=== PATIENT | female | born 1950 | race Caucasian/White ===

== ENCOUNTER 2017-01-16 10:00 | Outpatient (CLI) | payer MEDICARE, OTHER | END 2017-01-16 10:01 | disposition home or self-care (01) | DX: E87.5 Hyperkalemia (principal) ==

== ENCOUNTER 2020-11-27 13:50 | Outpatient (CLI) | payer MEDICARE, OTHER ==
[2020-11-27 18:09] LABS: BASOPHILS % (AUTO) 0.6 %; EOSINOPHILS # (AUTO) 0.1 10^3/uL (0.0-0.7); EOSINOPHILS % (AUTO) 1.3 %; HGB - HEMOGLOBIN 13.4 g/dL (12.0-16.0); LYMPHOCYTES # (AUTO) 1.9 10^3/uL (1.5-3.5); LYMPHOCYTES % (AUTO) 26.1 %; MEAN CORPUSCULAR HEMOGLOBIN 29.3 pg (27.0-31.0); MEAN CORPUSCULAR HGB CONC 31.4 g/dL (32.0-36.0); MEAN CORPUSCULAR VOLUME 93.2 fL (81.0-99.0); MEAN PLATELET VOLUME 9.8 fL (7.9-10.8); MONOCYTES # (AUTO) 0.6 10^3/uL (0.0-1.0); MONOCYTES % (AUTO) 7.7 %; NEUTROPHILS # (AUTO) 4.6 10^3/uL (1.5-6.6); NEUTROPHILS % (AUTO) 63.9 %; PLT - PLATELET COUNT 319 10^3/uL (130-450); RED BLOOD COUNT 4.58 10^6/uL (4.20-5.40); RED CELL DISTRIBUTION WIDTH 14.4 % (12.0-15.0); WHITE BLOOD COUNT 7.1 x10^3/uL (4.8-10.8)
[2020-11-27 19:09] LABS: ALBUMIN 4.3 g/dL (3.2-5.5); ALBUMIN/GLOBULIN RATIO 1.5 (1.0-2.2); ALKALINE PHOSPHATASE 42 IU/L (42-121); ALT ALANINE AMINOTRANSFERASE 21 IU/L (10-60); AST ASPARTATE AMINOTRANSFERASE 24 IU/L (10-42); BILIRUBIN,TOTAL 0.7 mg/dL (0.2-1.0); BUN - BLOOD UREA NITROGEN 23 mg/dL (6-20); CALCIUM 9.4 mg/dL (8.5-10.3); CARBON DIOXIDE - CO2 24 mmol/L (21-32); CHLORIDE 108 mmol/L (101-111); CHOL/HDL RATIO 2.5 (<4.4); CHOLESTEROL 232 mg/dL; CREATININE 0.9 mg/dL (0.4-1.0); GLUCOSE 100 mg/dL (70-100); HDL CHOLESTEROL 91 mg/dL; LDL CHOLESTEROL,CALCULATED 132 mg/dL; LDL/HDL RATIO 1.5 (<4.4); TOTAL PROTEIN 7.1 g/dL (6.7-8.2); VLDL CHOLESTEROL 9 mg/dL
[2020-11-27 20:33] LABS: HEMOGLOBIN A1c% 5.5 % (4.27-6.07)
[2020-11-28 12:31] LABS: HEPATITIS C ANTIBODY NON-REACTIVE (NON-REACTIVE)
== END 2020-11-27 23:59 | disposition home or self-care (01) ==
LOC: LAB.WCP 13:50
PROVIDERS: ATTEND Family Medicine
DX: Z01.84 Encounter for antibody response examination (principal); R73.01 Impaired fasting glucose; M81.0 Age-related osteoporosis without current pathological fracture; E78.5 Hyperlipidemia, unspecified
CPT/HCPCS: 36415; 80053; 80061; 83036; 83721; 85025; 86803

== ENCOUNTER 2021-01-16 10:54 | Outpatient (CLI) | payer MEDICARE, OTHER ==
--- NOTE | 2021-01-16 16:00 | DEXA Report ---
PROCEDURE: Dexa Spine and/or Hip INDICATIONS: OSTEOPOROSIS TECHNIQUE: Dual energy x-ray absorptiometry (DXA) was performed on a [employer] System. Regions measur ed are the AP Spine, femoral neck, and if needed forearm. COMPARISON: DEXA 12/10/2015, noting done on the Hologic system and not directly comparable to current e xam. FINDINGS: Lumbar Spine: Bone Mineral Density 1.077 g/cm/cm,T score -0.9, normal Left Hip: Bone Mineral Density 0.874 g/cm/cm,T score -1.1, minimal osteopenia Left Femoral Neck: Bone Mineral Density 0.842 g/cm/cm, T score -1.4, minimal to mild osteopenia (T score greater or equal to -1.0: NORMAL) (T score from -1.1 to -2.4: OSTEOPENIA) (T score less than or equal to -2.5 to: OSTEOPOROSIS) Impression: Minimal to mild osteopenia within the left hip and femoral neck relatively stable taking into account technique differences compared to prior exam. Patients with diagnosis of osteoporosis or osteopenia should have regular bone mineral density assess ment. For those eligible for Medicare, routine testing is allowed once every 2 years. Testing frequ ency can be increased for patients who have rapidly progressing disease or for those who are receivin g medical therapy to restore bone mass. Reviewed by: Tia Rojas MD on 01/16/2021 3:58 PM PDT Approved by: Tia Rojas MD on 01/16/2021 3:58 PM PDT Station ID: [id number]
== END 2021-01-16 10:55 | disposition home or self-care (01) ==
LOC: DI 10:54
PROVIDERS: ATTEND Family Medicine
DX: M85.89 Other specified disorders of bone density and structure, multiple sites (principal)

== ENCOUNTER 2021-01-16 11:37 | Outpatient (CLI) | payer MEDICARE, OTHER ==
--- NOTE | 2021-01-17 15:21 | Mammography Report ---
BILATERAL DIGITAL SCREENING MAMMOGRAM 3D/2D: 01/16/2021 CLINICAL: Routine screening. Comparison is made to exams dated: 01/28/2018 mammogram, 01/05/2017 mammogram, and 12/25/2015 mammogram - [facility]. The tissue of both breasts is heterogeneously dense. This may lower the sensi tivity of mammography. There is possible irregular architectural distortion in the left breast middle depth superior region seen on the mediolateral oblique view only. This is more prominent. No other significant masses, calcifications, or other findings are seen in either breast. IMPRESSION: INCOMPLETE: NEEDS ADDITIONAL IMAGING EVALUATION The possible irregular architectural distortion in the left breast is indeterminate. Additional view s with possible ultrasound are recommended. This exam was interpreted at Station ID: [id number]. NOTE: For mammograms, a report in lay terms will be sent to the patient. Approximately 15% of breast malignancies will not be visualized mammographically. In the management of a palpable breast mass, a negative mammogram must not discourage biopsy of a clinically suspicious lesion. Electronically Signed By: Dara godinez/lei:01/16/2021 16:00:59 ACR BI-RADS Category 0: Incomplete 3340F PARENCHYMAL PATTERN: (D) - The breast(s) demonstrate(s) heterogeneously dense fibroglandular parsarah soto. BI-RADS CATEGORY: (0) - 0 Mammo and US [id number] Immediate follow-up LATERALITY: (B)
== END 2021-01-16 11:38 | disposition home or self-care (01) ==
LOC: DI 11:37
PROVIDERS: ATTEND Family Medicine
DX: Z12.31 Encounter for screening mammogram for malignant neoplasm of breast (principal); N64.89 Other specified disorders of breast

== ENCOUNTER 2021-02-07 07:58 | Outpatient (CLI) | payer MEDICARE, OTHER ==
--- NOTE | 2021-02-08 09:36 | Ultrasound Report ---
LIMITED ULTRASOUND OF LEFT BREAST: 02/07/2021 CLINICAL: Patient returns today to evaluate a focal asymmetry in the left breast. Comparison is made to exams dated: 02/07/2021 mammogram, 01/16/2021 mammogram - [facility], 01/28/2018 mammogram, 01/05/2017 mammogram, and 12/25/2015 mammogram - [facility]. Real-time ultrasound of the left breast 11-1 o'clock region was performed. Birch scale images of the real-time examination were reviewed. No significant abnormalities were seen sonographically in the left breast. IMPRESSION: PROBABLY BENIGN There is no abnormality seen in the left breast to correspond with the previously described mammograp hy finding in the upper aspect which likely represents normal fibroglandular tissue. A follow-up left mammogram in 6 months is recommended to demonstrate continued stability/resolution. Findings and recommendations were conveyed to the patient during today's evaluation. This exam was interpreted at Station ID: [id number]. Electronically Signed By: Doug Mendoza M.D. aty/:02/07/2021 10:32:17 Ultrasound BI-RADS: 3 Probably benign BI-RADS CATEGORY: (3) - 3 Mammogram [id number] 6 month follow-up LATERALITY: (L)
--- NOTE | 2021-02-08 09:36 | Mammography Report ---
UNILATERAL LEFT DIGITAL DIAGNOSTIC MAMMOGRAM 3D/2D: 02/07/2021 CLINICAL: Patient returns today to evaluate an asymmetry in left breast. Comparison is made to exams dated: 01/16/2021 mammogram - [facility], 01/28/2018 [facility], 01/05/2017 mammogram, and 12/25/2015 mammogram - [facility]. The tissue of left breast is heterogeneously dense. This may lower the sensitivity of mammography. The previously described possible irregular architectural distortion in the left breast posterior dep th superior region seen on the mediolateral oblique view only is not definitively confirmed in today' s additional views. Overall it appears much less prominent and decreased in size and mostly looks li ke background breast parenchyma. No other significant masses or calcifications are seen in the breast. IMPRESSION: INCOMPLETE: NEEDS ADDITIONAL IMAGING EVALUATION The previously possible irregular architectural distortion in the left breast demonstrates essentiall y near complete dispersion and likely represents background breast parenchyma. However, it remains in determinate. An ultrasound is recommended for further evaluation and is scheduled to immediately fol low this examination. This exam was interpreted at Station ID: [id number]. NOTE: For mammograms, a report in lay terms will be sent to the patient. Approximately 15% of breast malignancies will not be visualized mammographically. In the management of a palpable breast mass, a negative mammogram must not discourage biopsy of a clinically suspicious lesion. Electronically Signed By: Doug Mendoza M.D. aty/:02/07/2021 10:30:21 ACR BI-RADS Category 0: Incomplete 3340F PARENCHYMAL PATTERN: (D) - The breast(s) demonstrate(s) heterogeneously dense fibroglandular alexandra soto. BI-RADS CATEGORY: (0) - 0 Ultrasound [id number] Immediate follow-up LATERALITY: (L)
== END 2021-02-07 07:59 | disposition home or self-care (01) ==
LOC: DI 07:58
PROVIDERS: ATTEND Family Medicine
DX: R92.8 Other abnormal and inconclusive findings on diagnostic imaging of breast (principal)

== ENCOUNTER 2021-10-09 09:44 | Outpatient (CLI) | payer MEDICARE, OTHER ==
--- NOTE | 2021-10-10 08:38 | Mammography Report ---
UNILATERAL LEFT DIGITAL DIAGNOSTIC MAMMOGRAM 3D/2D: 10/09/2021 CLINICAL: Patient returns for a 6 month follow up of the left breast. Comparison is made to exams dated: 02/07/2021 ultrasound, 02/07/2021 mammogram, 01/16/2021 mammogram - [facility], 01/28/2018 mammogram, 01/05/2017 mammogram, and 12/25/2015 mammogram - [facility]. The tissue of left breast is heterogeneously dense. This may lower the sensitivity of mammography. The previoulsy described possible irregular architectural distortion in the left breast posterior dep th superior region seen on the mediolateral oblique view only is again not confirmed in additional vi ews and is less prominent. It was not seen on the prior ultrasound. No other significant masses or calcifications are seen in the breast. IMPRESSION: PROBABLY BENIGN The possible irregular architectural distortion in the left breast most likely is fibroglandular tiss ue and is probably benign. A follow-up bilateral mammogram with possible left ultrasound in 6 months is recommended to demonstra te continued stability. Findings and recommendations were conveyed to the patient during today's evaluation. This exam was interpreted at Station ID: [id number]. NOTE: For mammograms, a report in lay terms will be sent to the patient. Approximately 15% of breast malignancies will not be visualized mammographically. In the management of a palpable breast mass, a negative mammogram must not discourage biopsy of a clinically suspicious lesion. Electronically Signed By: Doug Mendoza M.D. aty/:10/09/2021 10:30:27 ACR BI-RADS Category 3: Probably benign 3343F PARENCHYMAL PATTERN: (D) - The breast(s) demonstrate(s) heterogeneously dense fibroglandular parenchy ma. BI-RADS CATEGORY: (3) - 3 Mammo and US [id number] 6 month follow-up LATERALITY: (B)
== END 2021-10-09 09:45 | disposition home or self-care (01) ==
LOC: DI 09:44
PROVIDERS: ATTEND Family Medicine
DX: R92.8 Other abnormal and inconclusive findings on diagnostic imaging of breast (principal)

== ENCOUNTER 2022-12-01 10:44 | Outpatient (CLI) | payer MEDICARE, OTHER ==
--- NOTE | 2022-12-02 11:07 | Mammography Report ---
UNILATERAL LEFT DIGITAL DIAGNOSTIC MAMMOGRAM 3D/2D: 12/01/2022 CLINICAL: Patient returns for a 6 month follow up of the left breast. Comparison is made to exams dated: 05/23/2022 mammogram, 10/09/2021 mammogram, 02/07/2021 mammogram, 01/16 mammogram - [facility], and 01/28/2018 mammogram - [facility]. The left breast is heterogeneously dense, which may obscure small masses (category c / 51-75% glandul ar tissue). There is a possible stable benign irregular architectural distortion in the left breast posterior dep th superior region seen on the mediolateral oblique view only. No other significant masses or calcifications are seen in the breast. IMPRESSION: BENIGN There is no mammographic evidence of malignancy. Return to annual mammogram screening schedule is rec ommended. Future imaging is recommended as follows: 05/23/2023 mammogram. Based on the Tyrer Cuzick model (a risk assessment model) the patients lifetime risk is 7.5% and her 10 year risk is 6.8%. According to the ACR, ACS, and NCCN guidelines, an annual breast MRI exam vinayak g with mammogram is recommended if the patients lifetime risk is 20% or greater. This exam was interpreted at Station ID: [id number]. NOTE: For mammograms, a report in lay terms will be sent to the patient. Approximately 15% of breast malignancies will not be visualized mammographically. In the management of a palpable breast mass, a negative mammogram must not discourage biopsy of a clinically suspicious lesion. Electronically Signed By: Ashok delgado/lei:12/01/2022 12:12:19 ACR BI-RADS Category 2: Benign Finding(s) 3342F PARENCHYMAL PATTERN: (D) - The breast(s) demonstrate(s) heterogeneously dense fibroglandular parericy ma. BI-RADS CATEGORY: (2) - 2 Mammogram [id number] return to screening LATERALITY: (B)
== END 2022-12-01 10:45 | disposition home or self-care (01) ==
LOC: DI 10:44
PROVIDERS: ATTEND Physician Assistant
DX: R92.8 Other abnormal and inconclusive findings on diagnostic imaging of breast (principal)

== ENCOUNTER 2022-12-30 18:45 | Outpatient (CLI) | payer MEDICARE, OTHER ==
[2022-12-30 21:14] LABS: BILIRUBIN,URINE NEGATIVE (NEGATIVE); GLUCOSE, URINE (UA) NEGATIVE (NEGATIVE); KETONES,URINE (UA) NEGATIVE (NEGATIVE); LEUKOCYTE ESTERASE, URINE NEGATIVE (NEGATIVE); NITRITE,URINE NEGATIVE (NEGATIVE); OCCULT BLOOD,URINE LARGE (NEGATIVE); PH,URINE 5.5 PH (5.0-7.5); PROTEIN,URINE 30 mg/dL (NEGATIVE); UROBILINOGEN,URINE 0.2 (NORMAL) E.U./dL (NORMAL)
[2022-12-30 21:18] LABS: CLARITY,URINE HAZY (CLEAR)
[2022-12-30 21:24] LABS: BACTERIA,URINE Rare /HPF (None Seen); RBC,URINE TNTC /HPF (0-5); SQUAMOUS EPITHELIAL CELL,UR RARE Squamous (<= Few); WBC,URINE 0-3 /HPF (0-5)
== END 2022-12-30 23:59 | disposition home or self-care (01) ==
LOC: LAB.N 18:45
PROVIDERS: ATTEND Nurse Practitioner
DX: R31.9 Hematuria, unspecified (principal)
CPT/HCPCS: 81001; 87086

== ENCOUNTER 2023-01-03 04:40 | Emergency (ER) | payer MEDICARE, OTHER ==
--- NOTE | 2023-01-03 04:53 | ED Physician Documentation ---
PD HPI ABD PAIN - Stated complaint Stated Complaint: ZOILA PX - Chief complaint Chief Complaint: Abd Pain - History obtained from History obtained from: Patient - Additional information Additional information: HPI from patient. Patient c/o right flank pain radiating to right groin, episodic x 6 days with intermittent hematuria. Denies h/o similar symptoms. No inciting, exacerbating, nor ameliorating factors. Patient had been getting adequate relief with tylenol until tonight. Last dose tylenol was 3 tablets (325mg tablets) at approximately midnight. Review of Systems GI: reports: Abdominal Pain. denies: Nausea, Vomiting : reports: Hematuria. denies: Dysuria, Frequency PD PAST MEDICAL HISTORY - Past Medical History Past Medical History: No - Past Surgical History Past Surgical History: No - Present Medications Home Medications: Ambulatory Orders Medication Instructions Recorded Confirmed Ondansetron Odt [Zofran] 4 mg TL Q6H PRN #10 tablet 01/03/23 Oxycodone HCl/Acetaminophen 1 - 2 each PO Q6H PRN #14 tablet 01/03/23 [Percocet 5-325 mg Tablet] Tamsulosin [Flomax] 0.4 mg PO DAILY #14 cap 01/03/23 - Allergies Allergies/Adverse Reactions: Allergies Allergy/AdvReac Type Severity Reaction Status Date / Time No Known Drug Allergies Allergy Verified 01/03/23 04:49 - Living Situation Living Arrangement: reports: At home PD ED PE NORMAL - Vitals Vital signs reviewed: Yes - General General: Alert and oriented X 3, No acute distress (waxing and waning painful discomfort during H+P), Well developed/nourished - Cardiac Cardiac: RRR, No murmur - Respiratory Respiratory: No respiratory distress, Clear bilaterally - Abdomen Abdomen: Soft, Non tender - Back Back: No CVA TTP - Derm Derm: No rash Results - Vitals Vitals: Oxygen O2 Source Room air - Labs Labs: Laboratory Tests 01/03/23 01/03/23 05:04 05:04 WBC 12.1 H RBC 4.89 Hgb 14.3 Hct 44.2 MCV 90.4 MCH 29.2 MCHC 32.4 RDW 14.1 Plt Count 333 MPV 9.5 Neut # (Auto) 9.0 H Lymph # (Auto) 2.1 Gregory # (Auto) 0.7 Eos # (Auto) 0.2 Baso # (Auto) 0.1 Absolute Nucleated RBC 0.00 Nucleated RBC % 0.0 Sodium 138 Potassium 4.0 Chloride 105 Carbon Dioxide 24 Anion Gap 9.0 BUN 23 H Creatinine 1.1 H Estimated GFR (MDRD) 49 L Glucose 145 H Calcium 9.6 Total Bilirubin 0.2 AST 23 ALT 18 Alkaline Phosphatase 48 Total Protein 7.7 Albumin 4.5 Globulin 3.2 Albumin/Globulin Ratio 1.4 Lipase 45 - Rads (name of study) CT A/P Relevant Findings:: Prelim report reviewed, EMP independent interpretation of test (I reviewed these images and my interpretation is 6mm calculus in right ureter at level of pelvic brim with right hydroureteronephrosis), See rad report PD Medical Decision Making - ED course Complexity details: reviewed results, re-evaluated patient, considered differential, d/w patient ED course: Mild leukocytosis (12.1), with GFR 49 (previous results 61 although most recent result was 2020). CT demonstrates right ureteral calculus. She is given 15mg IV toradol and 5mg PO oxycodone with good pain relief on reevaluation. Results d/w patient. She is given 0.4mg tamsulosin prior to d/c. Return precautions discussed. Advised to seek follow up with urology; renal calculi also noted on CT (in addition to the ureteral stone). Prescriptions for zofran, oxycodone, and tamsulosin e-prescribed to patient's pharmacy of choice. I am prescribing a short course of short-acting opioid pain medication for this patient. I have reviewed the patients BULK PIGMENT REDUCER and no concerning findings were noted. I have discussed that the opioids are for short term therapy only, and will not be refilled from the ED. Departure - Departure Disposition: 01 Home, Self Care Clinical Impression: Renal colic Condition: Good Instructions: ED Stone Renal W Colic Prescriptions: Tamsulosin [Flomax] 0.4 mg PO DAILY #14 cap Oxycodone HCl/Acetaminophen [Percocet 5-325 mg Tablet] 1 - 2 each PO Q6H PRN #14 tablet PRN Reason: pain Ondansetron Odt [Zofran] 4 mg TL Q6H PRN #10 tablet PRN Reason: Nausea / Vomiting Comments: The CT scan shows a 6 mm kidney stone that is stuck in the ureter (the tube that connects the kidney to the bladder). This is what is causing your pain. Based on the size of the stone, you might need to have a procedure to remove the stone (it might not pass on its own). Contact your primary care provider on Thursday to inquire about the referral process for a urologist. Prescriptions for Percocet (narcotic/opiate pain medication), tamsulosin (medication that can increase the likelihood of passing the stone without a procedure), and ondansetron (anti-nausea medication) have been electronically submitted to [facility] pharmacy in [place]. Strain your urine through the strainer; if you passed the stone, you will see it caught in the mesh of the strainer. If you do pass the stone, you can stop taking the tamsulosin the following day (in other words, if you pass a stone, you should take one more dose of the tamsulosin when you are next due for it). I am prescribing a short course of narcotic pain medication for you. These are potentially dangerous and addictive medications that should be used carefully. These medications may constipate you. Take an xzhb-xpv-eglfauc stool softener (docusate) twice daily with plenty of water while taking these medications. If you go 24 hours without a bowel movement, take uegi-jdd-qzbrdoy miralax, per package instructions. Do not drink or drive while taking these medications. If you received narcotic or sedating medications while in the emergency department, do not drive for 24 hours. Store this medication in a safe, secure place and out of reach of children. It is a violation of federal law to give or sell this medication to another person or to use in a manner other than prescribed. The ED will not refill narcotic prescriptions, including prescriptions lost or stolen. To dispose of unwanted medications: 1. [facility] at [address] in [place] has a medication drop box. They accept prescription medications (in pill form) Thursday through Thursday 9:00 a.m. to 5:00 p.m. 2. The [facility] [employer] accepts prescription medications (in pill form only) for disposal year round. Call for more information. 3. Contact the [facility] for the next [facility] sponsored prescription d rug collection event. , [phone], or [phone]; Discharge Date/Time: 01/03/23 06:59
[2023-01-03 05:07] LABS: BASOPHILS # (AUTO) 0.1 10^3/uL (0.0-0.1); BASOPHILS % (AUTO) 0.6 %; EOSINOPHILS # (AUTO) 0.2 10^3/uL (0.0-0.7); EOSINOPHILS % (AUTO) 1.8 %; HCT - HEMATOCRIT 44.2 % (37.0-47.0); HGB - HEMOGLOBIN 14.3 g/dL (12.0-16.0); LYMPHOCYTES # (AUTO) 2.1 10^3/uL (1.5-3.5); LYMPHOCYTES % (AUTO) 17.1 %; MEAN CORPUSCULAR HEMOGLOBIN 29.2 pg (27.0-31.0); MEAN CORPUSCULAR HGB CONC 32.4 g/dL (32.0-36.0); MEAN CORPUSCULAR VOLUME 90.4 fL (81.0-99.0); MEAN PLATELET VOLUME 9.5 fL (7.9-10.8); MONOCYTES # (AUTO) 0.7 10^3/uL (0.0-1.0); MONOCYTES % (AUTO) 5.9 %; NEUTROPHILS % (AUTO) 74.4 %; PLT - PLATELET COUNT 333 10^3/uL (130-450); RED BLOOD COUNT 4.89 10^6/uL (4.20-5.40); RED CELL DISTRIBUTION WIDTH 14.1 % (12.0-15.0); WHITE BLOOD COUNT 12.1 x10^3/uL (4.8-10.8)
[2023-01-03] MEDS ORDERED: KETOROLAC 15 MG/ML VIAL IM STA (05:12)
[2023-01-03] MEDS ORDERED: oxyCODONE 5 MG TABLET PO STA (05:12)
[2023-01-03 05:27] LABS: ALBUMIN 4.5 g/dL (3.2-5.5); ALBUMIN/GLOBULIN RATIO 1.4 (1.0-2.2); BILIRUBIN,TOTAL 0.2 mg/dL (0.2-1.0); CALCIUM 9.6 mg/dL (8.5-10.3); CREATININE 1.1 mg/dL (0.4-1.0); TOTAL PROTEIN 7.7 g/dL (6.7-8.2)
[2023-01-03] MEDS ORDERED: oxyCODONE/ACET 5/325 Prepack 4 PO STA (06:41)
[2023-01-03] MEDS ORDERED: TAMSULOSIN 0.4 MG CAPSULE PO STA (06:42)
[2023-01-03 07:06] VITALS: BP 136/82
--- NOTE | 2023-01-03 11:16 | CT Report ---
PROCEDURE: ABDOMEN/PELVIS WO INDICATIONS: right flank pain TECHNIQUE: Noncontrast 5 mm thick sections acquired from the diaphragms to the symphysis. 5 mm coronal and sagi ttal reformats were then performed. For radiation dose reduction, the following was used: automated exposure control, adjustment of mA and/or kV according to patient size. COMPARISON: None. FINDINGS: Image quality: Excellent. Lung bases and heart: Unremarkable. A small hiatal hernia is incidentally noted. Liver: Unremarkable. Gallbladder and biliary tree: Within normal limits Spleen: Unremarkable. Pancreas: Unremarkable. Adrenals: Unremarkable. Kidneys and ureters: There is an obstructing stone seen within the right distal ureter at the level o f the pelvic brim, as on series 3 image 103, series 7 image 81, and series 6 image 51, measuring 7 mm craniocaudally and measuring 450 Hounsfield units. There is associated moderate right-sided hydroure ter and hydronephrosis. Nonobstructing right-sided kidney stones are seen and measure up to 2 mm. Nonobstructing left-sided kidney stones are seen, with the largest seen superiorly measuring 9 mm and 1200 Hounsfield units. Left-sided peripelvic cysts are seen. No left-sided hydronephrosis is seen. Bowel and peritoneum: No bowel distension. No pathologic free fluid. Diverticulosis can be seen, with out savannah findings of active diverticulitis. Lymph nodes: No central or retroperitoneal adenopathy. Vessels: Unremarkable. PELVIS Reproductive organs: This patient is status post hysterectomy. No adnexal masses can be seen. Bladder: Unremarkable. Lymph nodes: Unremarkable. Bones: No aggressive osseous abnormality. Other: None. IMPRESSION: 7 mm obstructing stone seen at the right pelvic brim, with associated right-sided hydroureter and hyd ronephrosis. No obstructing bilateral renal stones are seen, including a dense 9 mm stone at this superior pole of the left kidney. Additional findings: Small hiatal hernia Diverticulosis, without findings of active diverticulitis. Hysterectomy Note: No significant discrepancy from the preliminary report. Reviewed by: Gerard Feliciano MD on 01/03/2023 10:15 AM [facility] Approved by: Gerard Feliciano MD on 01/03/2023 10:15 AM [facility] Station ID: [id number]
== END 2023-01-03 06:59 | disposition home or self-care (01) ==
LOC: ED 04:40
DX: N13.2 Hydronephrosis with renal and ureteral calculous obstruction (principal)
CPT/HCPCS: 36415; 74176; 80053; 83690; 85025; 96372; 99284; A9270

== ENCOUNTER 2023-12-16 09:31 | Outpatient (CLI) | payer MEDICARE, OTHER ==
[2023-12-16 09:44] LABS: BASOPHILS # (AUTO) 0.1 10^3/uL (0.0-0.1); BASOPHILS % (AUTO) 0.8 %; EOSINOPHILS # (AUTO) 0.1 10^3/uL (0.0-0.7); EOSINOPHILS % (AUTO) 0.8 %; HCT - HEMATOCRIT 38.9 % (37.0-47.0); HGB - HEMOGLOBIN 12.7 g/dL (12.0-16.0); LYMPHOCYTES # (AUTO) 1.7 10^3/uL (1.5-3.5); LYMPHOCYTES % (AUTO) 21.5 %; MEAN CORPUSCULAR HEMOGLOBIN 30.1 pg (27.0-31.0); MEAN CORPUSCULAR HGB CONC 32.6 g/dL (32.0-36.0); MEAN CORPUSCULAR VOLUME 92.2 fL (81.0-99.0); MEAN PLATELET VOLUME 9.1 fL (7.9-10.8); MONOCYTES # (AUTO) 0.5 10^3/uL (0.0-1.0); MONOCYTES % (AUTO) 6.9 %; NEUTROPHILS # (AUTO) 5.5 10^3/uL (1.5-6.6); NEUTROPHILS % (AUTO) 69.7 %; PLT - PLATELET COUNT 300 10^3/uL (130-450); RED BLOOD COUNT 4.22 10^6/uL (4.20-5.40); RED CELL DISTRIBUTION WIDTH 13.7 % (12.0-15.0); WHITE BLOOD COUNT 7.8 x10^3/uL (4.8-10.8)
[2023-12-16 10:05] LABS: % IRON SATURATION 22 % (20-50); ALBUMIN 4.5 g/dL (3.2-5.5); ALBUMIN/GLOBULIN RATIO 1.7 (1.0-2.2); ALKALINE PHOSPHATASE 40 IU/L (42-121); ALT ALANINE AMINOTRANSFERASE 12 IU/L (10-60); AST ASPARTATE AMINOTRANSFERASE 16 IU/L (10-42); BILIRUBIN,TOTAL 0.8 mg/dL (0.2-1.0); BUN - BLOOD UREA NITROGEN 33 mg/dL (6-20); CALCIUM 9.9 mg/dL (8.5-10.3); CARBON DIOXIDE - CO2 25 mmol/L (21-32); CHLORIDE 106 mmol/L (101-111); CHOL/HDL RATIO 3.3 (<4.4); CHOLESTEROL 233 mg/dL; GFR - MDRD 54 (>89); GLUCOSE 113 mg/dL (74-104); HDL CHOLESTEROL 71 mg/dL; IRON 74 ug/dL (50-212); LDL CHOLESTEROL,CALCULATED 144 mg/dL; POTASSIUM 3.6 mmol/L (3.5-4.5); SODIUM 138 mmol/L (135-145); TOTAL IRON BINDING CAPACITY 329 ug/dL (250-450); TOTAL PROTEIN 7.1 g/dL (6.4-8.9); TRANSFERRIN 235 mg/dL (203-362); TRIGLYCERIDES 88 mg/dL (48-352); VLDL CHOLESTEROL 18 mg/dL
[2023-12-16 10:25] LABS: FERRITIN 157.8 ng/mL (11.0-306.8)
== END 2023-12-16 09:32 | disposition home or self-care (01) ==
LOC: LAB 09:31
PROVIDERS: ATTEND Physician Assistant Medical
DX: E78.5 Hyperlipidemia, unspecified (principal); K92.1 Melena
CPT/HCPCS: 36415; 80053; 80061; 82728; 83540; 83721; 84466; 85025

== ENCOUNTER 2024-02-12 11:35 | Day surgery (SDC) | payer MEDICARE, OTHER ==
[2024-02-12] MEDS: LACTATED RINGERS 1,000 ML IV ONE ×2 (12:06→14:13)
--- NOTE | 2024-02-12 12:12 | ANESTHESIA ---
Pre-Anesthesia VS, & Labs - Diagnosis screening - Procedure colonoscopy Vital Signs: Temp Pulse Resp BP Pulse Ox O2 Flow Rate 36.5 C 89 16 136/89 H 100 02/12/24 11:42 02/12/24 11:42 02/12/24 11:42 02/12/24 11:42 02/12/24 11:42 Height: 5 ft 6 in Weight (kg): 67 kg Body Mass Index: 23.8 BMI Classification: Normal - NPO >8 hours Last Fluid Intake: am prep - Is Patient ?: No - Lab Results Lab results reviewed: Yes Home Medications and Allergies Home Medications: Ambulatory Orders No Known Home Medications 02/11/24 No Known Home Medications 02/11/24 Allergies/Adverse Reactions: Allergies Allergy/AdvReac Type Severity Reaction Status Date / Time No Known Drug Allergies Allergy Verified 01/03/23 04:49 Anes History & Medical History - Anesthetic History Anesthesia Complications: reports: No previous complications Family history of Anesthesia Complications: Denies Family history of Malignant Hyperthermia: Denies - Medical History Cardiovascular: reports: None Pulmonary: reports: None Gastrointestinal: reports: Other Urinary: reports: Kidney stones Neuro: reports: None Musculoskeletal: reports: None Endocrine/Autoimmune: reports: None Skin: reports: None Smoking Status: Never smoker - Surgical History General: reports: Colonoscopy Eyes Ears Nose Throat (EENT): reports: Cataracts, Tonsil/Adenoidectomy Gynecologic: reports: Hysterectomy Exam General: Alert, Oriented x3, Cooperative Dental: WNL, Other (crowns) Mouth Openin Fingerbreadth Neck Mobility: Normal Mallampati classification: II Thyromental Distance: 4-6 cm Respiratory: Lungs clear, Normal breath sounds, No respiratory distress Cardiovascular: Regular rate Neurological: Normal speech Mental/Cognitive Status: Alert/Oriented X3, Normal for patient Cognitive Status: Within normal limits Plan Anesthesia Type: Total IV Consent for Procedure(s) Verified and Reviewed: Yes Code Status: Attempt Resuscitation ASA classification: 2-Mild systemic disease Is this case an emergency?: No
[2024-02-12] MEDS ORDERED: PROPOFOL 500 MG/50 ML 500 MG/50 ML VIAL ONE (13:18)
[2024-02-12] MEDS ORDERED: LIDOCAINE-PF 2% 10 ML AMP SUBQ ONE (13:33)
--- NOTE | 2024-02-12 13:34 | HISTORY & PHYSICAL EXAMINATION ---
Chief Complaint - Chief Complaint Chief Complaint: here for colonoscopy History of Present Illness - History Obtained From Records Reviewed: yes History obtained from: pt Exam Limitations: none - History of Present Illness HPI Comment/Other: last colonoscopy 10 years ago. no hx polyps. no gi symptoms History - Past Medical History Cardiovascular: reports: None Respiratory: reports: None Neuro: reports: None Endocrine/Autoimmune: reports: None GI: reports: Other : reports: Kidney stones HEENT: reports: None, Other Psych: reports: None Musculoskeletal: reports: None Derm: reports: None MRSA Hx?: No - Past Surgical History General: reports: Colonoscopy /TEST EXAMINER: reports: Hysterectomy HEENT: reports: Cataracts, Tonsil/Adenoidectomy - POLST Patient has POLST: No Meds/Allgy - Home Medications Home Medications: Ambulatory Orders Medication Instructions Recorded Confirmed No Known Home Medications 02/11/24 02/11/24 - Allergies Allergies/Adverse Reactions: Allergies Allergy/AdvReac Type Severity Reaction Status Date / Time No Known Drug Allergies Allergy Verified 01/03/23 04:49 Review of Systems - Other Findings Other Findings: 10 pt ros as above otherwise unremarkable Exam - Vital Signs Vital Signs: Vital Signs x48h Temp Pulse Resp BP Pulse Ox 02/12/24 11:42 36.5 C 89 16 136/89 H 100 - Physical Exam General Appearance: positive: No acute distress, Alert Eyes Bilateral: positive: PERRL, EOMI ENT: positive: No signs of dehydration Neck: positive: No JVD, Trachea midline Respiratory: positive: No respiratory distress Cardiovascular: positive: Regular rate & rhythm Abdomen: positive: No distention Neurologic/Psychiatric: positive: Oriented x3 Conclusion/Plan - Problem List (1) Colon cancer screening Conclusion/Plan: plan colonoscopy. parq held and consent obtained - Lab Results Lab results reviewed: Yes
--- NOTE | 2024-02-12 14:21 | ANESTHESIA POST OP EVALUATION ---
Anesthesia Post Eval - Post Anesthesia Eval Vitals: Last Vital Signs Temp 36.5 C 02/12/24 11:42 Pulse 89 02/12/24 11:42 Resp 16 02/12/24 11:42 BP 136/89 H 02/12/24 11:42 Pulse Ox 100 02/12/24 11:42 O2 Flow Rate CV Function Including HR & BP: Stable Pain Control: Satisfactory Nausea & Vomiting: Negative Mental Status: Baseline Respiratory Status: Airway Patent Hydration Status: Satisfactory Anesthesia Complications: None
[2024-02-12 14:34] VITALS: O2SAT 96
[2024-02-12 14:44] VITALS: BP 128/65
== END 2024-02-12 11:36 | disposition home or self-care (01) ==
LOC: SDS 11:35
PROVIDERS: ATTEND Surgery
DX: Z12.11 Encounter for screening for malignant neoplasm of colon (principal); K57.30 Diverticulosis of large intestine without perforation or abscess without bleeding
CPT/HCPCS: G0121; J7120